=== PATIENT | female | born 1970 | race Caucasian/White ===

== ENCOUNTER 2019-09-19 14:58 | Outpatient (CLI) | payer OTHER, SELFPAY ==
[2019-09-19 15:15] LABS: Abs Immature Grans 0.02 k/cumm (0.0-0.09); Absolute Basophil Count 0.02 k/cumm (0.0-0.2); Absolute Eosinophil Count 0.07 k/cumm (0.0-0.7); Absolute Lymphocyte Count 2.11 k/cumm (1.2-3.4); Absolute Neutrophil Count 6.79 k/cumm (1.2-6.7); Basophils % 0.2; Eosinophils % 0.7; HCT 42.2 % (36.0-46.0); Immature Grans % 0.2 %; Lymphocytes % 22.4; Mean Corp. HGB Concentration 33.2 g/dL (32.0-36.0); Mean Corpuscular Hemoglobin 29.2 pg (27.0-33.0); Mean Corpuscular Volume 88.1 fL (80-95); Mean Platelet Volume 9.9 fL (8.0-11.0); Monocytes % 4.3; Neutrophils % 72.2; Platelet Count 268 x1000/uL (130-400); RBC 4.79 m/cumm (4.00-5.20); RBC Distribution Width 14.1 % (11.7-14.6); White Blood Cell Count 9.41 k/cumm (4.4-10.8)
[2019-09-19 16:06] LABS: ALT 71 U/L (14-59); AST 48 U/L (15-37); Alkaline Phosphatase 88 U/L (46-116); Anion Gap 13.3 mmol/L (3-11); BUN 10 mg/dL (7-18); Bilirubin, Total 0.6 mg/dL (0.2-1.0); C-Reactive Protein 1.09 mg/dL (0.0-0.3); CO2 25.7 mmol/L (21.0-32.0); CREATININE 0.63 mg/dL (0.55-1.02); Calcium 9.1 mg/dL (8.5-10.1); Chloride 103 mmol/L (98-107); Glucose 111 mg/dL (74-106); Potassium 4.2 mmol/L (3.5-5.1); Sodium 142 mmol/L (136-145); TSH (W/Ref FT4) 2.18 uIU/mL (0.36-3.74); Total Protein 7.3 g/dL (6.4-8.2)
[2019-09-19 16:09] LABS: ESR 27 mm/hr (0-20)
== END 2019-09-19 15:18 ==
PROVIDERS: PCP Family Medicine; Visit Provider Internal Medicine
DX: R00.2 Palpitations (principal); R50.9 Fever, unspecified; M25.50 Pain in unspecified joint; Z01.30 Encounter for examination of blood pressure without abnormal findings
CPT/HCPCS: 36415; 80053; 85652; 84443; 85025; 86140

== ENCOUNTER 2019-10-03 15:52 | Outpatient (CLI) | payer OTHER, SELFPAY ==
[2019-10-03 16:28] LABS: Abs Immature Grans 0.02 k/cumm (0.0-0.09); Absolute Basophil Count 0.02 k/cumm (0.0-0.2); Absolute Eosinophil Count 0.08 k/cumm (0.0-0.7); Absolute Lymphocyte Count 2.54 k/cumm (1.2-3.4); Absolute Monocyte Count 0.42 k/cumm (0.11-0.7); Basophils % 0.2; Eosinophils % 0.8; HCT 39.6 % (36.0-46.0); HGB 13.4 g/dL (12.0-15.5); Immature Grans % 0.2 %; Lymphocytes % 26.8; Mean Corp. HGB Concentration 33.8 g/dL (32.0-36.0); Mean Corpuscular Hemoglobin 29.8 pg (27.0-33.0); Mean Platelet Volume 10.2 fL (8.0-11.0); Monocytes % 4.4; Neutrophils % 67.6; Platelet Count 277 x1000/uL (130-400); RBC Distribution Width 13.4 % (11.7-14.6); White Blood Cell Count 9.48 k/cumm (4.4-10.8)
[2019-10-03 17:03] LABS: ALT 50 U/L (14-59); AST 26 U/L (15-37); Albumin 4.1 g/dL (3.4-5.0); Alkaline Phosphatase 93 U/L (46-116); Anion Gap 9.2 mmol/L (3-11); BUN 11 mg/dL (7-18); Bilirubin, Total 0.4 mg/dL (0.2-1.0); C-Reactive Protein 1.31 mg/dL (0.0-0.3); CO2 28.8 mmol/L (21.0-32.0); CREATININE 0.69 mg/dL (0.55-1.02); Calcium 9.3 mg/dL (8.5-10.1); Chloride 105 mmol/L (98-107); Glucose 87 mg/dL (74-106); Potassium 4.1 mmol/L (3.5-5.1); Sodium 143 mmol/L (136-145); Total Protein 7.3 g/dL (6.4-8.2)
[2019-10-03 17:30] LABS: ESR 23 mm/hr (0-20)
== END 2019-10-03 16:12 ==
PROVIDERS: PCP Family Medicine; Visit Provider Internal Medicine
DX: R50.9 Fever, unspecified (principal); B34.9 Viral infection, unspecified; M25.50 Pain in unspecified joint
CPT/HCPCS: 36415; 80053; 85652; 85025; 86140

== ENCOUNTER 2019-10-06 13:59 | Outpatient (CLI) | payer OTHER, SELFPAY ==
[2019-10-06 14:44] LABS: Hemoglobin A1C 5.8 % (3.8-5.6)
[2019-10-06 15:13] LABS: Calculated LDL 222 mg/dL (<100); Cholesterol 292 mg/dL (<200); HDL Cholesterol 46 mg/dL (40-60); Triglyceride 124 mg/dL (<150)
[2019-10-06 21:41] LABS: Rheumatoid Factor <8.6 IU/mL (<12.0)
[2019-10-07 10:01] LABS: Lyme Ab w Rflx to Lyme Confirm Negative (Negative)
[2019-10-10 11:48] LABS: dsDNA Ab, IgG <12.3 IU/mL (<30.0)
[2019-10-10 14:56] LABS: ANA Interpretation Negative (Negative)
== END 2019-10-06 14:19 ==
PROVIDERS: PCP Family Medicine; Visit Provider Nurse Practitioner Family
DX: E78.5 Hyperlipidemia, unspecified (principal); M25.50 Pain in unspecified joint
CPT/HCPCS: 36415; 80061; 83036; 86038; 86225; 86431; 86618

== ENCOUNTER 2019-12-23 10:05 | Outpatient (CLI) | payer OTHER, SELFPAY ==
[2019-12-24 02:40] LABS: COVID-19 RT-PCR UVMMC Result Negative (Negative)
== END 2019-12-23 10:25 ==
PROVIDERS: PCP Nurse Practitioner Family; Visit Provider Nurse Practitioner Family
DX: J02.9 Acute pharyngitis, unspecified (principal)
CPT/HCPCS: U0003

== ENCOUNTER 2020-05-08 14:51 | Outpatient (REF) | payer SELFPAY ==
[2020-05-12 13:21] LABS: COVID-19 RT-PCR Result Negative
== END 2020-05-08 15:11 ==
LOC: NCHCN 14:51
PROVIDERS: PCP Nurse Practitioner Family; Visit Provider Family Medicine
DX: Z20.828 Contact with and (suspected) exposure to other viral communicable diseases (principal)
CPT/HCPCS: U0003

== ENCOUNTER 2020-05-11 19:10 | Outpatient (REF) | payer OTHER, SELFPAY ==
[2020-05-14 09:50] LABS: SARS-CoV-2 RNA Not Detected (NotDetected); SARS-CoV-2 RNA Source Nasal/Nares
== END 2020-05-11 19:30 ==
LOC: NCHCN 19:10
PROVIDERS: PCP Nurse Practitioner Family; Visit Provider Family Medicine
DX: Z20.828 Contact with and (suspected) exposure to other viral communicable diseases (principal)
CPT/HCPCS: U0003

== ENCOUNTER 2020-11-06 09:53 | Outpatient (REF) | payer OTHER, SELFPAY | END 2020-11-06 09:54 | disposition home or self-care (01) | LOC: LBN 09:53 | PROVIDERS: PCP Nurse Practitioner Family; Visit Provider Family Medicine | DX: J02.9 Acute pharyngitis, unspecified (principal) | CPT/HCPCS: 87077; 87070 ==

== ENCOUNTER 2020-11-12 02:39 | Outpatient (CLI) | payer OTHER, SELFPAY ==
[2020-11-12 13:49] LABS: BUN 14 mg/dL (7-18); CREATININE 0.7 mg/dL (0.55-1.02); Calcium 9.3 mg/dL (8.5-10.1); Calculated LDL 104 mg/dL (<100); Chloride 107 mmol/L (98-107); Cholesterol 179 mg/dL (<200); Glucose 99 mg/dL (74-106); HDL Cholesterol 41 mg/dL (40-60); Potassium 3.9 mmol/L (3.5-5.1); Sodium 146 mmol/L (136-145); Triglyceride 170 mg/dL (<150)
== END 2020-11-12 02:40 | disposition home or self-care (01) ==
LOC: LBO 02:39
PROVIDERS: PCP Nurse Practitioner Family; Visit Provider Nurse Practitioner Family
DX: E78.5 Hyperlipidemia, unspecified (principal)
CPT/HCPCS: 36415; 80048; 80061

== ENCOUNTER 2021-11-04 09:21 | Emergency (ER) | payer OTHER, SELFPAY ==
[2021-11-04 09:26] VITALS: BP 148/86; PULSE 86; RESP 16; TEMP 36; O2SAT 97
--- NOTE | 2021-11-04 09:42 | ED.GENADUL_ITS ---
Discharge Plan Disposition Patient Disposition: HOME Condition: Stable Discharge Details Clinical Impression: Back pain Primary Care Provider: Loretta Arnold ED Provider: Jc Cristobal Home Meds and New Rx's Prescriptions: New prednisone 20 mg tablet 60 mg PO DAILY 4 Days Qty: 12 0RF cyclobenzaprine 7.5 mg tablet 7.5 mg PO TID PRNQty: 10 0RF Continued loratadine 10 mg Tablet 10 mg PO PRN0RF Discharge Instructions Instructions: Back Pain (ED) Additional Instructions: Prednisone, Flexeril, as directed, remember Flexeril may cause drowsiness. Vsrz-lyh-hhtdzhv ibuprofen 800 mg every 8 hours, do not do this for more than 5 days. Gentle stretching as tolerated. Cool and/or warm compresses every 2 hours for 20 minutes. Please watch for new or worsening symptoms and return to the ER for any concerns. Referral to physical therapy has been given. Please reach out to your primary care provider later today or tomorrow to discuss your ER visit and need for outpatient reevaluation. As we discussed, MRI as an outpatient may be indicated if symptoms are to persist to further evaluate a disc issue. Stand Alone Forms: Physical Therapy Referral Medical Decision Making This is a 51-year-old female, reports that on Thursday she got her hair tangled in her dog runner, was pulled and jerked forward but did not fall to the ground. She states since that time she has had diffuse lower back pain that does not radiate, denies bowel or bladder incontinence or retention, numbness, tingling, weakness abdominal pain, fevers. She states that standing up straight makes the pain much worse. She thinks maybe it is slightly better today than it was 2 days ago but overall not much improvement. Has been taking Motrin without much relief. Clinically she does appear slightly uncomfortable, but is neurologically intact and nontoxic. Discussed options. She states that she was mostly concerned of a disc issue. No neuro symptoms at this time. Discussed we could obtain x-ray imaging but unable to obtain emergent MRI. Given the limitations of x-ray, x-ray was declined. Patient wonders if steroids may help. Plan is to give an injection of Toradol now as well as 60 mg p.o. steroids. I will provide a prescription of a muscle relaxer and steroids for discharge. I will also provide her a referral to physical therapy. Strict discharge and return precautions were provided. This documentation was generated using [employer] system, please disregard any oddities of phrase or misspellings. Medical Records Medical records reviewed: Yes I reviewed the patient's medical records. HPI General Mode of arrival: ambulatory . Date/Time Provider Initiated Documentation: 11/04/21 09:33 . Limitations to Documentation: no limitations . Information obtained by: patient . History of Present Illness 51 year old F presents to the emergency department with the chief complaint of back pain, described as severe, with intensity rated at 8. Quality is described as aching, and is localized to the back. Patient reports no radiation. Patient started experiencing this day(s) (2) and it has been constant. improves with Immobilization improves symptom(s), Movement worsens symptoms . Patient notes no other symptoms.. Patient did receive the following treatments prior to arrival, NSAID Related Data Home Medications Medication Instructions Recorded Confirmed cyclobenzaprine 7.5 mg tablet 7.5 mg PO TID PRN #10 tab 11/04/21 loratadine 10 mg tablet 10 mg PO PRN 11/04/21 prednisone 20 mg tablet 60 mg PO DAILY 4 Days #12 tab 11/04/21 Previous Rx's Medication Instructions Recorded cyclobenzaprine 7.5 mg tablet 7.5 mg PO TID PRN #10 tab 11/04/21 prednisone 20 mg tablet 60 mg PO DAILY 4 Days #12 tab 11/04/21 Allergies Allergy/AdvReac Type Severity Reaction Status Date / Time No Known Allergies Allergy Verified 11/04/21 09:30 General Stated Complaint: Nk/Back Pain CORAZON: 4 Review of Systems Constitutional Constitutional: Denies fever(s) and Denies weakness Cardiovascular Cardiovascular: Denies chest pain and Denies dyspnea Respiratory Respiratory: Denies dyspnea Gastrointestinal Gastrointestinal: Denies abdominal pain and Denies fecal incontinence Genitourinary Genitourinary: Denies urinary incontinence Musculoskeletal Musculoskeletal: Reports back pain, Denies numbness, Reports stiffness and Denies tingling Integumentary/Breasts Skin/Breast: Denies rash Neurologic Neurologic: Denies numbness, Denies tingling and Denies weakness PFSH All Active Problems (Updated 11/04/21 @ 10:05 by COLLEEN Oconnell) Back pain (Acute) Recurrent herpes labialis (Chronic) Prediabetes (Chronic) Allergic rhinitis (Acute) Depressive disorder (Chronic) Generalized anxiety disorder (Chronic) Obesity (Acute) IBS (irritable bowel syndrome) (Chronic) Hyperlipidemia (Chronic) Arthralgia (Chronic) Medical History Pancreatitis (~2013) Surgical History S/P cholecystectomy S/P reduction mammoplasty S/P tonsillectomy Family History Mother Hyperlipidemia Fibromyalgia Father Hyperlipidemia Hypertension Brother Hypertension Son No problems noted. Daughter No problems noted. Maternal Grandfather Heart disease Hypertension Maternal Grandmother Asthma Rheumatoid arthritis Paternal Grandfather Heart disease Paternal Grandmother Hyperlipidemia Lung cancer Other Alzheimer disease Social History Smoking/Tobacco Use Status: Never Smoking risk assessment performed?: Yes Drug use: Rarely Substance use type: does not use and marijuana Details: thc gummie on thursday. cbd rub. Exam Const General: cooperative, healthy appearing, comfortable and no acute distress Orientation: alert and awake HENMT Head: normal to inspection, normocephalic and atraumatic Eyes Conjunctivae: conjunctivae normal Neck Neck: normal visual inspection, full ROM, trachea midline and supple Resp Effort & Inspection: normal respiratory effort and able to speak in complete sentences Auscultation: clear to auscultation bilaterally Cardio Rate: regular rate Rhythm: regular rhythm GI Inspection: obesity Palpation: soft and nontender Back/Spine/Pelvis Back: no CVA tenderness and back tenderness (Diffuse lower lumbar, no midline point tenderness) Thoracic/Lumbar Spine: thoraco-lumbar ROM limited (Secondary to discomfort) and No thoraco-lumbar spasm Pelvis: no pain with anterior-posterior compression and no pain with lateral compression Skin General skin exam: no rashes or lesions noted Neuro General: patient alert, patient awake, moves all extremities and no focal motor deficits Cognition: normal cognition Speech: speech normal Gait: antalgic Motor: muscle tone normal throughout and strength 5/5 throughout Sensory Exam: no sensory deficits noted Extrem General: normal to inspection, full ROM and capillary refill normal Psych Appearance: grossly normal Mental Status: mental status grossly normal Course Vital Signs Vital signs: Vital Signs Temperature 36 C L 11/04/21 09:26 Pulse 86 11/04/21 09:26 Respiratory Rate 16 11/04/21 09:26 Blood Pressure 148/86 H 11/04/21 09:26 Pulse Oximetry 97 11/04/21 09:26 Temperature 36 C L 11/04/21 09:26 Temperature Source Skin 11/04/21 09:26 Pulse 86 11/04/21 09:26 Respiratory Rate 16 11/04/21 09:26 Respiratory Effort 11/04/21 09:26 Blood Pressure 148/86 H 11/04/21 09:26 Pulse Oximetry 97 11/04/21 09:26 Oxygen Delivery Method Room Air 11/04/21 09:26 Oxygen Flow Rate 0 11/04/21 09:26 Pain Level 7 11/04/21 09:32
[2021-11-04] MEDS: Ketorolac 60 MG/2 ML VIAL IM (10:09)
[2021-11-04] MEDS: predniSONE 20 MG TAB 60 MG PO (10:10)
== END 2021-11-04 10:20 | disposition home or self-care (01) ==
PROVIDERS: Emergency Provider Physician Assistant; PCP Nurse Practitioner Family
DX: M54.50 Low back pain, unspecified (principal); X50.1XXA Overexertion from prolonged static or awkward postures, initial encounter
CPT/HCPCS: 96372; 99284; 99283; J1885; J7512

== ENCOUNTER 2022-10-01 14:45 | Outpatient (REF) | payer BC, SELFPAY ==
--- NOTE | 2022-10-01 14:30 | PAPFT_PTH ---
PATIENT: Bailee Lisa LOC: [facility] U#:[id number] AGE/SX: 51/F ROOM: RE10/01/[address]: MIRELLA Graff : 1970 BED: DIS: 10/01/2022 SPEC #: [id number] RECD: 10/02/22 12:41 STATUS: JORGE REQ #: [id number] JOSSY: 10/01/22 14:[address]: Loretta Arnold DEPT: [facility] Cytology RECD BY: Marycruz Glass Tissues: 1 - CX/ENDOCX FOR PAP SMEARS Procedures: PAP THIN PREP/UVM Screening HPV DNA PROBE Comments: [id number]
== END 2022-10-01 14:46 | disposition home or self-care (01) ==
LOC: LBN 14:45
PROVIDERS: PCP Nurse Practitioner Family; Visit Provider Nurse Practitioner Family
DX: Z12.4 Encounter for screening for malignant neoplasm of cervix (principal); Z11.51 Encounter for screening for human papillomavirus (HPV)
CPT/HCPCS: 88142; 87624

== ENCOUNTER 2022-10-23 00:50 | Outpatient (CLI) | payer BC, SELFPAY ==
--- NOTE | 2022-10-23 10:45 | DI.MAMMO_ITS ---
Exam(s) MAMMO SCREENING EXAM: MAMMO SCREENING CLINICAL HISTORY: screening, Z12.39 TECHNIQUE: Mammograms were interpreted according to the usual protocol including computer analysis w [employer] CAD system, tomosynthesis and C-view imaging. COMPARISON: 2016 FINDINGS: The breasts are composed of mainly fatty density , Breast Density category A. No suspicious masses or suspicious microcalcifications are seen. No skin thickening or abnormal axillary lymph nodes are seen. There has been no significant change from prior exams. IMPRESSION: BI-RADS Category 1, Negative mammogram Yearly screening mammography is recommended. Breast Density - Category A, fatty density. A negative radiographic report should not delay biopsy if a dominant or clinically suspicious mass is present. Up to ten percent of cancers are not identified on mammography. A negative report may reinforce clinical impression. Adenosis and dense breasts may obscure an underlying neoplasm. False positive reports average 6 to 10%. Patient will receive a letter notifying them of these results.
== END 2022-10-23 01:10 ==
LOC: DI 00:50
PROVIDERS: PCP Nurse Practitioner Family; Visit Provider Nurse Practitioner Family
DX: Z12.31 Encounter for screening mammogram for malignant neoplasm of breast (principal)
CPT/HCPCS: 77063; 77067

== ENCOUNTER 2022-11-25 02:47 | Outpatient (CLI) | payer BC, SELFPAY ==
[2022-11-25 12:36] LABS: Hemoglobin A1C 5.9 % (<5.7)
[2022-11-25 13:13] LABS: Anion Gap 8.8 mmol/L (3-11); BUN 11 mg/dL (7-18); CO2 28.2 mmol/L (21.0-32.0); CREATININE 0.7 mg/dL (0.55-1.02); Calcium 9.2 mg/dL (8.5-10.1); Calculated LDL 225 mg/dL (<100); Chloride 104 mmol/L (98-107); Cholesterol 296 mg/dL (<200); Glucose 113 mg/dL (74-106); HDL Cholesterol 49 mg/dL (40-60); Potassium 4.2 mmol/L (3.5-5.1); Sodium 141 mmol/L (136-145); TSH (W/Ref FT4) 3.36 uIU/mL (0.36-3.74); Triglyceride 114 mg/dL (<150)
== END 2022-11-25 02:48 | disposition home or self-care (01) ==
PROVIDERS: PCP Nurse Practitioner Family; Visit Provider Nurse Practitioner Family
DX: E78.5 Hyperlipidemia, unspecified (principal); R73.03 Prediabetes
CPT/HCPCS: 36415; 80048; 80061; 83036; 84443

== ENCOUNTER 2023-02-05 04:37 | Outpatient (CLI) | payer BC, SELFPAY ==
[2023-02-05] MEDS: Albuterol HFA 18 GM 200 PUFF INH IH (16:39)
[2023-02-05] MEDS: Inhaler, Assist Device 1 EACH MC (16:39)
--- NOTE | 2023-02-06 15:28 | W.PFT ---
Date of service: 02/05/23 Time of Service: 15:33 Pulmonary Function Test Result Indications: Long COVID Interpretation Spirometry: There is no airflow limitation. No significant bronchodilator response. Lung Volumes: Normal lung volumes Diffusion Capacity: Normal diffusion Airway Pressure: Normal airways resistance. Impression Normal pulmonary function testing Clinical Correlation therefore is recommended.
== END 2023-02-05 04:38 | disposition home or self-care (01) ==
LOC: RT 04:37
PROVIDERS: PCP Nurse Practitioner Family; Visit Provider Family Medicine
DX: R06.2 Wheezing (principal); U09.9 Post COVID-19 condition, unspecified
CPT/HCPCS: 94060; 94726; 94729